=== PATIENT | female | born 1995 | race Caucasian/White ===

== ENCOUNTER → 2021-05-11 | Outpatient (CLI) | payer OTHER | LOC: LAB 18:01 | DX: Z32.00 Encounter for pregnancy test, result unknown (principal) | CPT/HCPCS: 84702; 84703; 86900; 86901 ==

== ENCOUNTER 2021-05-21 04:12 | Emergency (ER) | payer OTHER ==
[2021-05-21 04:47] LABS: HEMOGLOBIN 12.8 gm/dl (12.3-15.3); RED BLOOD COUNT 4.87 M/UL (4.00-5.10); WHITE BLOOD COUNT 9.2 K/UL (4.5-11.0)
[2021-05-21 05:05] LABS: BUN/CREATININE RATIO 7 (0-10)
== END 2021-05-21 05:38 | disposition home or self-care (01) ==
LOC: ER1 04:12
PROVIDERS: Physician Assistant
DX: O20.0 Threatened abortion (principal); Z88.0 Allergy status to penicillin
CPT/HCPCS: 80048; 81001; 84702; 85025; 99284